=== PATIENT | female | born 1935 | race Caucasian/White ===

== ENCOUNTER 2019-02-04 01:46 | Inpatient (IN) | payer MEDICARE, OTHER ==
[~2019-02-04] VITALS: Ht 177.8 cm; Wt 90.3 kg
[2019-02-04] VITALS (17 sets, daily range): BP systolic 123–161; BP diastolic 64–97; Ht 177.8 cm; Wt 90.3 kg
[2019-02-04] MEDS ORDERED: WARF4TAB46 PO (02:01)
[2019-02-04] MEDS ORDERED: TAMS0.4C25 PO (02:01)
[2019-02-04] MEDS ORDERED: NS(*) 0.9% 1000 ML BAG 1,000 ML IV ONE (02:10)
[2019-02-04 02:17] LABS: PLATELET COUNT, AUTOMATED 321 K/uL (150-450)
--- NOTE | 2019-02-04 02:24 | EKG ---
FACILITY: [facility] PATIENT NAME: DENISE BOWSER : [id number] MR: [id number] V: [id number] EXAM DATE: ORDERING PHYSICIAN: RIMA PAEZ TECHNOLOGIST: LUCIANO Test Reason : EPIGASTRIC PAIN Blood Pressure : / mmHG Vent. Rate : 097 BPM Atrial Rate : 097 BPM P-R Int : 150 ms QRS Dur : 138 ms QT Int : 404 ms P-R-T Axes : 021 -77 026 degrees QTc Int : 513 ms Normal sinus rhythm Right bundle branch block Left anterior fascicular block Bifascicular block Abnormal ECG No previous ECGs available Confirmed by ALVIN HODGE ([id number]) on 02/04/2019 6:50:37 AM Referred By: Confirmed By:ALVIN HODGE
--- NOTE | 2019-02-04 03:21 | ER Report ---
History and Physical Time Seen By MD: 01:45 Hx. of Stated Complaint: HAS RT SIDE ABDOMINAL PAIN. HASN'T HAD A BOWEL MOVEMENT SINCE YESTERDAY. VOMITED ONCE ENROUTE TO HOSP. HPI/ROS CHIEF COMPLAINT: abdominal pain HISTORY OF PRESENT ILLNESS: pt has 1 d of abdominal pain; developed at noon while sitting, notes r sided and epigastric. Constant, gradually improving. Was staying at cabin near [place] and drove here due to pain. Has not had similar symptoms. Vomited x 2. No nausea now. No fever/chills. Last BM yesterday was nl. Pt is passing gas. Hx of r nephrectomy after reported renal abscess 10 yrs ago. Hx DVT and on coumadin. HX br xc with r masectomy in 1998; annual checks show no recurrence. REVIEW OF SYSTEMS: Constitutional: No fever, no chills. Eyes: No discharge. ENT: No sore throat. Cardiovascular: No chest pain, no palpitations. Respiratory: No cough, no shortness of breath. Gastrointestinal: above Genitourinary: No hematuria. Musculoskeletal: No back pain. Skin: No rashes. Neurological: No headache. Remainder of the 14 system rev: Yes Allergies: Coded Allergies: Sulfa (Sulfonamide Antibiotics) (Verified Allergy, Intermediate, 02/04/19) Home Meds Reported Medications Benazepril Hcl (BENAZEPRIL HCL) 20 Mg Tab, 1 TAB PO QDAY 02/04/19 Warfarin Sodium (WARFARIN SODIUM) 1 Mg Tablet, 0.5 TAB PO DIRECTED 4 mg on MON, WED and FRI 4.5 mg on TUES, THURS, SAT and SUN 02/04/19 Tamsulosin Hcl (FLOMAX) 0.4 Mg Cap.er.24h, 1 CAP PO QHS, CAP 02/04/19 Warfarin Sodium (COUMADIN) 4 Mg Tablet, 1 TAB PO DIRECTED 4 mg on MON, WED and FRI 4.5 mg on TUES, THURS, SAT and SUN 02/04/19 Reviewed Nurses Notes: Yes Hx Substance Use Disorder: No Hx Alcohol Use: No Constitutional Vital Sign - Last 24 Hours 02/04/19 02/04/19 02/04/19 01:52 03:16 04:01 Temp 98.2 Pulse 98 97 89 Resp 12 12 14 B/P (MAP) 129/102 135/85 (102) 145/94 (111) Pulse Ox 90 95 92 O2 Delivery Room Air Room Air Room Air Physical Exam General Appearance: The patient is alert, has no immediate need for airway protection and no signs of toxicity. Eyes: Pupils equal and round no pallor or injection. ENT, Mouth: Mucous membranes are moist. Respiratory: There are no retractions, lungs are clear to auscultation. Cardiovascular: Regular rate and rhythm. no m/r/g Gastrointestinal: normal bowel sounds, mild epigastric ttp. No rebound/guarding/peritoneal. No other focal ttp. Neurological: alert, no gross deficits Skin: Warm and dry, no rashes. Musculoskeletal: Extremities are nontender, nonswollen and have full range of motion, with exception of left knee ttp c/w pt's chronic c/o knee pain DIFFERENTIAL DIAGNOSIS: After history and physical exam differential diagnosis was considered for abdominal pain including but not limited to appendicitis, cholecystitis, gastritis and urinary tract infection.chest pain including but not limited to myocardial ischemia, pericarditis pulmonary embolus, chest wall pain, pleural inflammation and pulmonary infectious causes. Medical Decision Making Data Points Result Diagram: 02/04/19 0200 02/04/19 0200 Laboratory Hematology Test 02/04/19 02:00 White Blood Count 20.9 k/uL (4.5-11.0) H Red Blood Count 4.67 M/uL (4.17-5.56) Hemoglobin 14.7 g/dL (12.0-16.0) Hematocrit 43.5 % (34.0-47.0) Mean Corpuscular Volume 93.3 fL (80.0-96.0) Mean Corpuscular Hemoglobin 31.6 pg (26.0-33.0) Mean Corpuscular Hemoglobin Concent 33.8 g/dL (32.0-36.0) Red Cell Distribution Width 14.6 % (11.5-14.5) H Platelet Count 321 K/uL (150-450) Mean Platelet Volume 9.2 fL (7.2-11.1) Neutrophils (%) (Auto) 92.2 % (39.4-72.5) H Lymphocytes (%) (Auto) 4.3 % (17.6-49.6) L Monocytes (%) (Auto) 2.9 % (4.1-12.4) L Eosinophils (%) (Auto) 0.0 % (0.4-6.7) L Basophils (%) (Auto) 0.6 % (0.3-1.4) Nucleated RBC Relative Count (auto) 0.0 /100WBC Neutrophils # (Auto) 19.2 K/uL (2.0-7.4) H Lymphocytes # (Auto) 0.9 K/uL (1.3-3.6) L Monocytes # (Auto) 0.6 K/uL (0.3-1.0) Eosinophils # (Auto) 0.0 K/uL (0.0-0.5) Basophils # (Auto) 0.1 K/uL (0.0-0.1) Nucleated RBC Absolute Count (auto) 0.01 K/uL Peripheral Blood Smear Yes Y/N Chemistry Test 02/04/19 02:00 Sodium Level 136 mmol/L (137-145) Potassium Level 4.8 mmol/L (3.5-5.0) Chloride Level 100 mmol/L (98-107) Carbon Dioxide Level 23 mmol/L (22-31) Blood Urea Nitrogen 28 mg/dl (7-18) Creatinine 1.50 mg/dl (0.52-1.04) Glomerular Filtration Rate Calc 33.2 Random Glucose 190 mg/dl (75-110) Hemoglobin A1c 5.7 % (4.6-6.0) Calcium Level 10.7 mg/dl (8.4-10.2) Total Bilirubin 0.7 mg/dl (0.2-1.3) Aspartate Amino Transf (AST/SGOT) 49 U/L (0-35) Alanine Aminotransferase (ALT/SGPT) 42 U/L (0-56) Alkaline Phosphatase 84 U/L (0-126) Troponin I < 0.012 ng/ml Total Protein 8.5 g/dl (6.3-8.2) Albumin 4.3 g/dl (3.5-5.0) Lipase 126 U/L (23-300) Coagulation Test 02/04/19 02:00 Activated Partial Thromboplast Time 37 seconds (23-35) Urinalysis Test 02/04/19 02:20 Urine Color Yellow Urine Clarity Slightly-cloudy Urine pH 5.0 pH (4.8-9.5) Urine Specific [place] 1.021 Urine Protein Negative mg/dL (NEGATIVE) Urine Glucose (UA) Negative mg/dL (NEGATIVE) Urine Ketones Trace mg/dL (NEGATIVE) Urine Blood Negative (NEGATIVE) Urine Nitrite Negative (NEGATIVE) Urine Bilirubin Negative (NEGATIVE) Urine Urobilinogen Negative mg/dL (0.2-1.9) Urine Leukocyte Esterase Small (NEGATIVE) Urine RBC 2 /HPF (0-2/HPF) Urine WBC 100 /HPF (0-5/HPF) Urine WBC Clumps Mod /HPF Urine Squamous Epithelial Cells None /LPF (NONE-FEW) Urine Bacteria Many /HPF (NONE-FEW) Urine Hyaline Casts Few /LPF (NONE-FEW) Urine Mucus None /HPF (NONE-FEW) EKG/Imaging EKG Interpretation 12 lead EKG: Rhythm: normal sinus rhythm [place]: left QRS: wide; rbb, lafb ST segments: no st elevations/depressions Sinus rhythm with bifasicular block Monitor Interpretation: Normal Sinus Rhythm ED Course/Re-evaluation ED Course 83-year-old female presents with epigastric and right upper quadrant pain since noon. Patient has not had similar symptoms previously. Medical history signifi cant for DVT, on Coumadin (INR 2.5), breast cancer, status post right-sided mastectomy, with annual evaluations and has been in remission for 18 years, htn, single kidney secondary to nephrectomy due to what sounds like renal abscess/sepsis. Findings c/w acute cholecystitis without findings concerning for choledocholithiasis. Pt hd stable in ED. Will initiate zosyn; c/s Dr. Staley who agrees to admission with hospitalist consult; consulted Dr. Pichardo for hospitalist evaluation. Pt understands possibility of need for lap choly due to open nephrectomy in past. Pt understands need to f/u for comparison of imaging given lymph nodes noted on CT. Decision to Disposition Date: Feb 04, 2019 Decision to Disposition Time: 04:13 Depart Departure Latest Vital Signs Vital Signs Date Time Temp Pulse Resp B/P (MAP) Pulse Ox O2 Delivery O2 Flow Rate FiO2 02/04/19 04:01 89 14 145/94 (111) 92 Room Air 02/04/19 01:52 98.2 Impression: Primary Impression: Cholecystitis Additional Impressions: Ileus Lymphadenopathy Condition: Improved Disposition: Admitted from ER Problem Qualifiers RIMA PAEZ MD Feb 04, 2019 03:21
--- NOTE | 2019-02-04 03:40 | RADIOLOGY IMAGING REPORT ---
FACILITY: [facility] [place] PATIENT NAME: Thea Llamas : 1935 MR: [id number] V: [id number] EXAM DATE: ORDERING PHYSICIAN: RIMA PAEZ TECHNOLOGIST: Location: [facility] [place] Patient: Thea Llamas : 1935 Visit/Account:[id number] Date of Sevice: 02/04/2019 CT ABDOMEN PELVIS W/O CON HISTORY: Epigastric pain, tenderness, and abdominal distention. COMPARISON: None. TECHNIQUE: Axial images were obtained from the lung bases through the symphysis pubis without intrave nous contrast. Sagittal and coronal reformats were performed. One of the following dose optimization techniques was utilized in the performance of this exam: Autom ated exposure control; adjustment of the mA and/or kV according to the patient's size; or use of an i terative reconstruction technique. Specific details can be referenced in the facility's radiology CT exam operational policy. CONTRAST: None. FINDINGS: LOWER CHEST: There is mild atelectasis and/or scarring. There are right cardiophrenic angle nodes jasmyne t are enlarged for location, the largest measuring 4 mm short axis diameter. There are also prominent lymph nodes adjacent to the superior vena cava (images 13 through 15 series 2, and one adjacent to t he esophagus (image 14), although they are not enlarged. LIVER: Normal. GALLBLADDER/BILIARY: There is diffuse edema/thickening of the gallbladder wall, and there is trace pe richolecystic stranding. There is an oval structure that suspect is a partially calcified large stone within the gallbladder. No intrahepatic or extrahepatic ductal dilation. PANCREAS: Moderate to severe atrophy. SPLEEN: Normal. ADRENALS: Bilateral enlargement, likely due to adrenal hyperplasia. KIDNEYS/URETERS/BLADDER: Normal. The bladder is decompressed. GI/MESENTERY/PERITONEAL CAVITY: There are dilated fluid-filled small bowel loops. Bowel tapers distal ly rather than an abrupt transition, favoring ileus over small bowel obstruction. No bowel wall thick ening. The small bowel tracks more inferiorly than typically seen prior to crossing midline. In addit ion, there is a paucity of small bowel loops in the left upper quadrant. No volvulus. The appendix is closely opposed to the terminal ileum, but appears normal. There is trace ascites in the right parac olic gutter and within the pelvis. No free air. VESSELS: There is moderate to severe atherosclerotic disease. No aneurysm. NODES: Normal. PELVIS: There are numerous phleboliths. Uterus is absent. Ovaries are not identified and may be absen t. BONES/VERTEBRA/SOFT TISSUES: There is a leftward curvature of the lumbar spine with a rotatory compon ent. There is severe multilevel degenerative disc disease. There are endplate sclerosis and vacuum cl efts at numerous levels. There is 2 mm retrolisthesis of T12 compared to L1. There is moderate spinal canal stenosis at L4-5, secondary to degenerative changes. There is mild spinal canal stenosis at L2 -3 and L3-4. There is sclerosis along the sacroiliac joints. There is mild degenerative change of the hips. There is degenerative change of the symphysis pubis. There are varices in the anterior low pelvic wall. IMPRESSION: 1. Findings are suspicious for cholecystitis. 2. Dilated small bowel loops with a tapering transition, which favors ileus over small bowel obstruct ion. Follow-up as clinically indicated. 3. 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 No volvulus. 4. Enlarged right cardiophrenic angle lymph nodes for location. Reportedly, patient has a history of cancer (breast). If patient has prior studies elsewhere, suggest comparison made to assess for long-t erm stability. These findings were discussed by phone with RIMA PAEZ on 02/04/2019 3:20 AM. Report Dictated By: Loree Shannon at 02/04/2019 3:03 AM Report E-Signed By: Loree Shannon at 02/04/2019 3:31 AM WSN:[id number]
[2019-02-04 03:53] LABS: INR 2.51
[2019-02-04] MEDS ORDERED: PIPERACILLIN/TAZO*3.375GM VIAL 3.375 GM in NS(*) 0.9% 100 ML MINI-BAG 100 ML IVPB ONE (04:00)
[2019-02-04] MEDS ORDERED: MORPHINE 2 MG/ML SYR IVP ONE (04:10)
[2019-02-04] MEDS ORDERED: ONDANSETRON 4 MG/2 ML VIAL ONE (04:16)
[2019-02-04] MEDS ORDERED: KCL/D1/2NS 20 MEQ 1000 ML 1,000 ML IV PRN (05:39)
[2019-02-04] MEDS ORDERED: ACETAMINOPHEN 325 MG TAB PO PRN ×2 (05:40→06:10)
[2019-02-04] MEDS ORDERED: NALOXONE HCL 0.4 MG/ML VIAL IVP PRN (05:40)
--- NOTE | 2019-02-04 05:48 | Gen Surgery History & Physical ---
History of Present Illness Chief Complaint RUQ pain History of Present Illness 83 yo female with 16 hour hx RUQ/epigastric pain, associated with NV. Pain is severe, constant and non-radiating. No prior similar s/s. Pt is on Coumadin for hx DVT at the time of her mastectomy. No FCS or dark urine. History Unable To Obtain Past Medical: Home Meds Reported Medications Tamsulosin Hcl (FLOMAX) 0.4 Mg Cap.er.24h, 0.4 MG PO, CAP 02/04/19 Warfarin Sodium (COUMADIN) 4 Mg Tablet, 4 MG PO QDAY 02/04/19 Allergies: Coded Allergies: Sulfa (Sulfonamide Antibiotics) (Verified Allergy, Intermediate, 02/04/19) Review of Systems All Systems Reviewed/Normal: Yes, Except as Noted Gastrointestinal: Other (see HPI) Exam General Appearance: Alert, Awake, No Acute Distress, Afebrile Neuro: No Gross deficits Cardiovascular: Normal Rhythm & Peripheral Pulses Respiratory: No Respiratory Distress, Clear to Auscultation, Other (right mastectomy) GI: Other (soft, non-distended with +BS, +Ortiz's sign, well healed right flank incision) Musculoskeletal: No Weakness/Pain Integumentary: Skin Intact without Lesion / Mass Psych: Alert & Oriented X3, Appropriate Mood & Affect Medical Decision Making Data Points Result Diagram: 02/04/19 0200 02/04/19 020 EKG / Imaging Monitor Interpretation: Normal Sinus Rhythm Pre-Admit Course Medical Record Review: Yes Assessment and Plan Problems: (1) Cholecystitis Status: Acute Assessment & Plan: 83 yo female with acute cholecystitis in the setting of prior right nephrectomy for benign disease. Will need Coumadin reversed and cholecystectomy, likely an open approach. Will ask Int Med to eval given her co-morbidities. Time Spent: > 30 min Venous Thromboembolism VTE Risk Physician Assess for VTE Risk: Yes Patient's VTE Risk: Low VTE Diagnostic Test 2 Days Prior to Admit: No Antithrombotics Is Pt On Any Antithrombotics?: Yes DENICE JOHNSON MD Feb 04, 2019 05:48
[2019-02-04] MEDS ORDERED: MORPHINE 2 MG/ML SYR IVP PRN (06:10)
[2019-02-04] MEDS ORDERED: ONDANSETRON 4 MG/2 ML VIAL IVP PRN (06:10)
--- NOTE | 2019-02-04 06:12 | RADIOLOGY IMAGING REPORT ---
[place] [facility] [place] Thea Llamas : 1935 MR: [id number] V: [id number] EXAM DATE: ORDERING PHYSICIAN: DENICE JOHNSON TECHNOLOGIST: Location: [facility] Patient: Thea Llamas : 1935 Visit/Account:[id number] Date of Sevice: 02/04/2019 CHEST SINGLE AP 02/04/2019 05:39 hours. HISTORY: Assess for CHF. COMPARISON: None. TECHNIQUE: Portable AP view of the chest. FINDINGS: TUBES/LINES/HARDWARE: There are surgical clips at the right axilla and overlying the right side of th e heart. PULMONARY/PLEURA: There is linear opacity in the left lower lung field. Right lung is clear. No inter stitial prominence. There is no pneumothorax or pleural effusion. CARDIOMEDIASTINAL: Cardiac and mediastinal silhouettes are within normal limits. BONES/SOFT TISSUES: No acute osseous abnormality. The visible abdomen is normal. IMPRESSION: 1. Minimal scarring or atelectasis at the left lower lung field but no evidence for CHF. Report Dictated By: Loree Shannon at 02/04/2019 6:02 AM Report E-Signed By: Loree Shannon at 02/04/2019 6:04 AM WSN:[id number]
--- NOTE | 2019-02-04 06:14 | Hospitalist Progress Note ---
Subjective Progress Notes Subjective 83 yr old lady with acute cholecystitis/cholelithiasis with abrupt onset yesterday afternoon with abdominal pain, nausea and recurrent emesis. Symptoms did not resolve so she presented to ER early this morning. No history of gall bladder disease, pancreatitis, liver disease or peptic ulcer disease. Workup in ER revealed large gallstone, inflammation surrounding gall bladder with some fluid collection. Elevated WBC's. Admitted to surgical service. Patient Complains of: Gastrointestinal: Nausea, Vomiting, Other (constipation. Right upper abdominal pain. Poor appetite. ) Physical Exam Vital Signs Date Time Temp Pulse Resp B/P (MAP) Pulse Ox O2 Delivery O2 Flow Rate FiO2 02/04/19 04:44 97 12 131/78 (95) 93 Room Air 02/04/19 01:52 98.2 Intake and Output 02/04/19 07:03 Intake Total 800 ml Output Total 100 ml Balance 700 ml Intake IV Total 800 ml Output Urine Total 100 ml General Appearance: Alert, Awake, No Acute Distress, Afebrile Cardiovascular: Regular Rate and Rhythm, Other (Very soft S1S2. No murmurs, gallops or rubs.) Respiratory: Clear to Auscultation Chest: No Masses, No Tenderness, Other (S/P right mastectomy.) GI: Other (Moderately tender right upper quadrant. No distension. BS are hypoactive. No organomegaly or masses. ) : No CVA Tenderness Lymph: No Adenopathy Extremities: Soft and Non Tender, Warm, Pulses, Perfused, Other (Right calf is slightly larger that left due to old thrombophlebitis. No acute changes. ) Psych: Alert & Oriented X3, Appropriate Mood & Affect Result Diagram: 02/04/1919902/04/19199 Item Value Date Time Total Bilirubin 0.7 mg/dl 02/04/19199 Aspartate Amino Transf (AST/SGOT) 49 U/L H 02/04/19199 Random Glucose 190 mg/dl H 02/04/19199 Calcium Level 10.7 mg/dl H 02/04/19199 Alanine Aminotransferase (ALT/SGPT) 42 U/L 02/04/19199 Alkaline Phosphatase 84 U/L 02/04/19199 Troponin I < 0.012 ng/ml 02/04/19199 Total Protein 8.5 g/dl H 02/04/19199 Albumin 4.3 g/dl 02/04/19199 Lipase 126 U/L 02/04/19199 Urine Color Yellow 02/04/19219 Urine Clarity Slightly-cloudy 02/04/19219 Urine pH 5.0 pH 02/04/19219 Urine Specific [place] 1.021 02/04/19219 Urine Protein Negative mg/dL 02/04/19219 Urine Glucose (UA) Negative mg/dL 02/04/19219 Urine Ketones Trace mg/dL 02/04/19219 Urine Nitrite Negative 02/04/19219 Urine Blood Negative 02/04/19219 Urine Urobilinogen Negative mg/dL 02/04/19219 Urine Bilirubin Negative 02/04/19219 Urine Leukocyte Esterase Small H 02/04/19219 Urine RBC 2 /HPF 02/04/19219 Urine WBC 100 /HPF 02/04/19219 Urine WBC Clumps Mod /HPF 02/04/19219 Urine Squamous Epithelial Cells None /LPF 02/04/19219 Urine Bacteria Many /HPF H 02/04/19219 Urine Hyaline Casts Few /LPF 02/04/19219 Urine Mucus None /HPF 02/04/19219 Prothrombin Time 27.5 seconds H 02/04/19199 Prothromb Time International Ratio 2.51 02/04/19199 Activated Partial Thromboplast Time 37 seconds H 02/04/19199 Monitor Interpretation: Normal Sinus Rhythm Assessment and Plan Problems: (1) Cholecystitis, acute with cholelithiasis Status: Acute Assessment & Plan: See surgical report and plans which for now include IV antibiotics with piperacillin/tazo and IV fluids, pain control. Follow CBC and chem panel. Will certainly need cholecystectomy sooner than later. (2) Ileus Status: Acute Assessment & Plan: Secondary to #1. (3) UTI (urinary tract infection) Status: Chronic Assessment & Plan: Probably has acute UTI based on UA. Culture done prior to antibiotics. She does have recurrent problems with UTI's and does self cath at home as needed--usually 3-4 times a day--due to poor bladder emptying. Will continue self cath as required. (4) Adrenal hyperplasia Status: Chronic Assessment & Plan: Will need to be evaluated as outpt. Could explain the hy perglycemia. (5) Hyperglycemia Status: Acute Assessment & Plan: No history of diagnosed diabetes. Will check WBG levels over the next several days and decide onl treatment. Check Hgb A1C. (6) Lymphadenopathy Status: Chronic Assessment & Plan: Most likely chronic although cannot exclude metastatic breast cancer. She is followed on a regular basis for her breast cancer and has had no recurrent noted. Will follow-up as outpatient. (7) Elevated serum creatinine Status: Chronic Assessment & Plan: Probably chronic due to previous left nephrectomy for damage done from what was probably sepsis in 1998. May be component of dehydration as well. Will run NS at 125 cc/hr and follow serum creat. (8) DVT of lower extremity (deep venous thrombosis) Status: Chronic Assessment & Plan: DVT x 1 post sepsis in 1998. No recurrence with chronic anticoagulation with warfarin. Will need to reverse INR as soon as surgeons decide upon cholecystectomy with vit. K and/or FFP. (9) History of nephrectomy, right Status: Resolved Assessment & Plan: Renal damage was originally done in 1998 with episode of sepsis due to infection in left ankle and foot. Ended up with chronic UTI's and probable abscess in right kidney requiring nephrectomy in 2006. (10) ASVD (arteriosclerotic vascular disease) Status: Chronic Assessment & Plan: See CT report. (11) Breast cancer, right Status: Resolved Assessment & Plan: Inactive problem at this time with regular follow-up at home. The adenopathy reported on CT is a bit concerning but will follow-up as outpt. Time Spent on Plan of Care: > 30 min Exam Sepsis Risk: No Definite Risk Problem Qualifiers (1) UTI (urinary tract infection): Urinary tract infection type: acute cystitis MILKA HODGE MD FACP Feb 04, 2019 06:13
[2019-02-04] MEDS ORDERED: NS(*) 0.9% 1000 ML BAG 1,000 ML IV PRN ×2 (06:25→16:24)
[2019-02-04] MEDS ORDERED: PIPERACILLIN/TAZO*3.375GM VIAL 3.375 GM in NS(*) 0.9% 100 ML MINI-BAG 100 ML IVPB SCH (10:30)
[2019-02-04 11:39] LABS: INR 2.34
[2019-02-04] MEDS ORDERED: WARF1TAB15 PO (12:59)
[2019-02-04] MEDS ORDERED: BENA20TA64 PO (12:59)
[2019-02-04] MEDS ORDERED: NS(*) 0.9% 500 ML BAG 500 ML IV PRN (15:40)
[2019-02-04] MEDS: PIPERACILLIN/TAZO*3.375GM VIAL 3.375 GM in NS(*) 0.9% 100 ML MINI-BAG 100 ML IVPB SCH (18:27)
[2019-02-04] MEDS ORDERED: diphenhydrAMINE 25 MG CAP PO ONE (22:00)
[2019-02-04] MEDS ORDERED: LOPERAMIDE HCL 2 MG CAP PO ONE (22:00)
[2019-02-05] VITALS (16 sets, daily range): BP systolic 132–182; BP diastolic 4–103
[2019-02-05] MEDS: PIPERACILLIN/TAZO*3.375GM VIAL 3.375 GM in NS(*) 0.9% 100 ML MINI-BAG 100 ML IVPB SCH ×6 (00:22→23:51)
[2019-02-05 06:10] LABS: PLATELET COUNT, AUTOMATED 215 K/uL (150-450)
[2019-02-05 06:17] LABS: INR 1.59
--- NOTE | 2019-02-05 06:55 | RADIOLOGY IMAGING REPORT ---
FACILITY: PATIENT NAME: Thea Llamas : 1935 MR: [id number] V: [id number] EXAM DATE: ORDERING PHYSICIAN: KHUSHI FORTUNE TECHNOLOGIST: Location: [facility] Patient: Thea Llamas : 1935 Visit/Account:[id number] Date of Sevice: 02/05/2019 CHEST SINGLE AP Additional pertinent History: Preop COMPARISON STUDIES: none FINDINGS: Support lines and catheters: Oxygen tubing Lungs and Pleura: Mild coarse interstitial lung changes well aerated lung angel with no infiltrates or consolidations. No effusions. No parenchymal mass lesions. Heart and vasculature: Negative. Tg and Mediastinum: Negative. Bones and Chest wall: Postsurgical changes in the right axilla Upper Abdomen: Negative. IMPRESSION: 1. Negative chest. No significant interval change in the appearance when compared to the previous dilma dy. Report Dictated By: Parrish Francois MD at 02/05/2019 6:45 AM Report E-Signed By: Parrish Francois MD at 02/05/2019 6:48 AM WSN:[id number]
--- NOTE | 2019-02-05 07:13 | General Surgery Progress Note ---
Subjective Progress Notes Subjective feeling fine. mult diarrhea bms. pain much improved. Physical Exam Vital Signs Date Time Temp Pulse Resp B/P (MAP) Pulse Ox O2 Delivery O2 Flow Rate FiO2 02/05/19 06:50 98.3 73 133/78 (96) 95 Nasal Cannula 1.0 02/05/19 00:20 18 Intake and Output 02/05/19 07:03 Intake Total 1391 ml Output Total 1000 ml Balance 391 ml Intake Oral 300 ml Blood Product 1091 ml Output Urine Total 1000 ml # Voids 1 # Bowel Movements 8 General Appearance: No Acute Distress GI: Other (abd soft) Result Diagram: 02/05/19 0550 02/05/19 0550 Monitor Interpretation: Normal Sinus Rhythm Assessment and Plan Problems: (1) Cholecystitis Status: Acute Assessment & Plan: 83 yo female with acute cholecystitis in the setting of prior right nephrectomy for benign disease. Will need Coumadin reversed and cholecystectomy, likely an open approach. Will ask Int Med to eval given her co-morbidities. 02/05/19: doing fine. npo. cont iv abx. lap khushbu today. Exam Sepsis Risk: No Definite Risk KHUSHI FORTUNE Feb 05, 2019 07:12
[2019-02-05] MEDS ORDERED: FAMOTIDINE(*) 20MG/50ML PREMIX 50 ML IVPB ONE (08:00)
[2019-02-05] MEDS ORDERED: NORMOSOL R SOLN(*) 1000 ML BAG 1,000 ML IV PRN (09:00)
--- NOTE | 2019-02-05 09:45 | Antimicrobial Stewardship ---
Antimicrobial Time Out Antimicrobial Stewardship MD Service: Other (SURGERY) Indications: Other (CHOLECYSTITIS) Antimicrobial Used ZOSYN Start Date: Feb 04, 2019 Culture Results: N/A Eligible for PO Conversion Eligable for PO Conversion: No (NPO - LAP ROSAURA TODAY) Reviewed with Provider Reviewed w/ Provider on Rounds: No Comments Comments PATIENT WITH CHOLECYSTITIS AND STARTED ON ZOSYN PRIOR TO LAP CHOLECYSTECTOMY. FRANCE PORTER Feb 05, 2019 09:45
--- NOTE | 2019-02-05 09:57 | NUR ---
DARLINE from Diamante CLARK and Jazlyn CLARK from [facility]
[2019-02-05] MEDS ORDERED: PROPOFOL EMUL(*) 10MG/ML 20 ML 20 ML ONE (10:17)
[2019-02-05] MEDS ORDERED: DEXAMETHASONE SOD PHOS 10MG/ML ONE (10:19)
[2019-02-05] MEDS ORDERED: ROCURONIUM BR 10 MG/ML 5 ML SY 5 ML ONE (10:19)
[2019-02-05] MEDS ORDERED: ONDANSETRON 4 MG/2 ML VIAL ONE (10:19)
[2019-02-05] MEDS ORDERED: BUPIVACAINE/EPI 0.5% 50ML VIAL INFIL ONE (10:44)
[2019-02-05] MEDS ORDERED: PHENYLEPHRINE 10 MG/1 ML VIAL ONE (10:57)
[2019-02-05] MEDS ORDERED: NS 0.9% 20 ML SDV 20 ML ONE (10:57)
--- NOTE | 2019-02-05 11:01 | Hospitalist Progress Note ---
Subjective Progress Notes Subjective She was admitted for cholecystitis. She is expected to get surgical repair today. She has no complaints, she had no acute events overnight. Patient Complains of: Cardiovascular: No: Chest Pain Respiratory: No: Shortness of Breath Physical Exam Vital Signs Date Time Temp Pulse Resp B/P (MAP) Pulse Ox O2 Delivery O2 Flow Rate FiO2 02/05/19 10:28 94 Nasal Cannula 1.0 02/05/19 09:55 96.9 75 16 160/84 (109) Intake and Output 02/05/19 01:03 Intake Total 2671 ml Output Total 900 ml Balance 1771 ml Intake Oral 780 ml IV Total 800 ml Blood Product 1091 ml Output Urine Total 900 ml # Voids 1 # Bowel Movements 8 General Appearance: Alert, Awake, No Acute Distress, Afebrile Neuro: No Gross deficits Cardiovascular: Regular Rate and Rhythm Respiratory: No Respiratory Distress, Clear to Auscultation Psych: Alert & Oriented X3, Appropriate Mood & Affect Result Diagram: 02/05/19 0550 02/05/19 0550 Monitor Interpretation: Normal Sinus Rhythm Assessment and Plan Problems: (1) Cholecystitis, acute with cholelithiasis Status: Acute Assessment & Plan: See surgical report and plans include IV antibiotics with piperacillin/tazo and IV fluids, pain control. Follow CBC and chem panel. Surgery planning cholecystectomy today. (2) Ileus Status: Acute Assessment & Plan: Secondary to #1. (3) UTI (urinary tract infection) Status: Chronic Assessment & Plan: Probably has acute UTI based on UA. Culture done prior to antibiotics. She does have recurrent problems with UTI's and does self cath at home as needed--usually 3-4 times a day--due to poor bladder emptying. Will continue self cath as required. (4) Adrenal hyperplasia Status: Chronic Assessment & Plan: Will need to be evaluated as outpt. Could explain the hyperglycemia. (5) Hyperglycemia Status: Acute Assessment & Plan: No history of diagnosed diabetes. Hgb A1C is 5.7. Fasting glucose this morning 94. Will continue to monitor. (6) Lymphadenopathy Status: Chronic Assessment & Plan: Most likely chronic although cannot exclude metastatic breast cancer. She is followed on a regular basis for her breast cancer and has had no recurrent noted. Will follow-up as outpatient. (7) Elevated serum creatinine Status: Chronic Assessment & Plan: Probably chronic due to previous left nephrectomy for damage done from what was probably sepsis in 1998. May be component of dehydration as well. Will run NS at 125 cc/hr and follow serum creat. (8) DVT of lower extremity (deep venous thrombosis) Status: Chronic Assessment & Plan: DVT x 1 post sepsis in 1998. No recurrence with chronic anticoagulation with warfarin. Reverse INR with 4u units of FFP. INR now 1.5. (9) History of nephrectomy, right Status: Resolved Assessment & Plan: Renal damage was originally done in 1998 with episode of sepsis due to infection in left ankle and foot. Ended up with chronic UTI's and probable abscess in right kidney requiring nephrectomy in 2006. (10) ASVD (arteriosclerotic vascular disease) Status: Chronic Assessment & Plan: See CT report. (11) Breast cancer, right Status: Resolved Assessment & Plan: Inactive problem at this time with regular follow-up at home. The adenopathy reported on CT is a bit concerning but will follow-up as outpt. Exam Sepsis Risk: No Definite Risk Problem Qualifiers (1) UTI (urinary tract infection): Urinary tract infection type: acute cystitis TERRI LEVINP Feb 05, 2019 11:01
[2019-02-05] MEDS ORDERED: SUGAMMADEX SOD 200 MG/2 ML SDV ONE (11:57)
[2019-02-05] MEDS ORDERED: fentaNYL CITR 100 MCG/2 ML AMP ONE (12:30)
[2019-02-05] MEDS ORDERED: traMADol 50 MG TAB PO PRN (14:10)
[2019-02-05] MEDS ORDERED: NS(*) 0.9% 1000 ML BAG 1,000 ML IV PRN (17:16)
--- NOTE | 2019-02-05 21:43 | OPERATIVE REPORT 1 ---
EVENT DATE: February 05, 2019 SURGEON: Adrian Luke MD ANESTHESIOLOGIST: Huan Tavera MD ANESTHESIA: General and local. EDI SPECIALIST: None. PREOPERATIVE DIAGNOSIS Acute cholecystitis. POSTOPERATIVE DIAGNOSES 1. Acute cholecystitis. 2. Chronic cholecystitis. PROCEDURE PERFORMED Laparoscopic cholecystectomy. INTRAVENOUS FLUIDS Crystalloid. ESTIMATED BLOOD LOSS Minimal. SPECIMENS Gallbladder. COMPLICATIONS None. INDICATIONS This is an 83-year-old female who presented to the hospital with abdominal pain. CT scan showed a possible ileus. This has since resolved. The CT scan also showed a large stone in the gallbladder and inflammation around the gallbladder. Risks and benefits of the procedure were explained, and consent was signed. DESCRIPTION OF PROCEDURE Patient was taken to the operating room and placed in the supine position. General anesthesia was administered per anesthesia team. Patient prepped and draped in normal sterile fashion. Local analgesia injected in the dermis above the umbilicus, and a 5 mm vertical incision was made. The umbilical stump was grasped and elevated. A Veress needle was inserted. A pneumoperitoneum was achieved. Veress needle was removed, and a 5 mm port was advanced. After injecting local analgesia under direct vision, a 12 mm subxiphoid port and two 5 mm right-sided ports were placed. I inspected the abdomen. There was no injury upon entry. There were some adhesions between the abdominal wall and the omentum, as well as the omentum to the gallbladder. These were taken down with LigaSure. The fundus of the gallbladder was grasped and retracted superiorly and laterally. Infundibulum was grasped and retracted. Electrocautery and LigaSure were used to free the cystic duct and the cystic artery of surrounding tissue. Both structures were seen going directly to the gallbladder. The cystic artery was divided with LigaSure. Hemostasis was assured. Three clips were placed on the cystic duct, and it was divided sharply between the distal two clips. Gallbladder was taken off the liver bed with electrocautery and LigaSure. It was removed with an Endo Catch bag through the subxiphoid port site. There was some oozing from the gallbladder due to the chronic cholecystitis, and this was controlled with electrocautery. Right upper quadrant was irrigated and suctioned. Irrigant returned clear. Hemostasis was assured. Fascial closure device with an 0 Vicryl stitch times two was used to close the fascia at the subxiphoid port site. Two right upper quadrant ports were removed under direct vision. Hemostasis was assured. Pneumoperitoneum was relieved. Final port was removed. All skin incisions were closed with 4-0 Monocryl subcuticular stitches. More local analgesia was injected. Appropriate dressings were applied. Patient tolerated the procedure well. There were no complications. [facility]
[2019-02-05] MEDS: LOPERAMIDE HCL 2 MG CAP PO PRN (23:51)
[2019-02-06] VITALS (7 sets, daily range): BP systolic 146–171; BP diastolic 69–98
[2019-02-06] MEDS: PIPERACILLIN/TAZO*3.375GM VIAL 3.375 GM in NS(*) 0.9% 100 ML MINI-BAG 100 ML IVPB SCH ×4 (05:47→23:40)
[2019-02-06 08:02] LABS: PLATELET COUNT, AUTOMATED 234 K/uL (150-450)
--- NOTE | 2019-02-06 09:09 | Hospitalist Progress Note ---
Subjective Progress Notes Subjective She is s/p cholecystectomy. She reports much improvement in pain and symptoms. She has been tolerating clear liquid diet without difficulty. Patient Complains of: Cardiovascular: No: Chest Pain Respiratory: No: Shortness of Breath Physical Exam Vital Signs Date Time Temp Pulse Resp B/P (MAP) Pulse Ox O2 Delivery O2 Flow Rate FiO2 02/06/19 07:33 97.6 74 146/97 (113) 90 Nasal Cannula 2.0 02/06/19 02:57 16 Intake and Output 02/06/19 01:03 Intake Total 3150 ml Output Total 1400 ml Balance 1750 ml IV Total 3150 ml Output Urine Total 1400 ml # Bowel Movements 3 General Appearance: Alert, Awake, No Acute Distress, Afebrile Neuro: No Gross deficits Cardiovascular: Regular Rate and Rhythm Respiratory: No Respiratory Distress, Clear to Auscultation Psych: Alert & Oriented X3, Appropriate Mood & Affect Result Diagram: 02/06/19 0752 02/06/19 0752 Monitor Interpretation: Normal Sinus Rhythm Assessment and Plan Problems: (1) Cholecystitis, acute with cholelithiasis Status: Acute Assessment & Plan: See surgical report and plans include IV antibiotics with piperacillin/tazo and IV fluids, pain control. Follow CBC and chem panel. Cholecystectomy performed 02/05. (2) Ileus Status: Acute Assessment & Plan: Secondary to #1. (3) UTI (urinary tract infection) Status: Chronic Assessment & Plan: Probably has acute UTI based on UA. Culture done prior to antibiotics. She does have recurrent problems with UTI's and does self cath at home as needed--usually 3-4 times a day--due to poor bladder emptying. Will continue self cath as required. (4) Adrenal hyperplasia Status: Chronic Assessment & Plan: Will need to be evaluated as outpt. Could explain the hyperglycemia. (5) Hyperglycemia Status: Acute Assessment & Plan: No history of diagnosed diabetes. Hgb A1C is 5.7. Fasting glucose this morning 94. Will continue to monitor. (6) Lymphadenopathy Status: Chronic Assessment & Plan: Most likely chronic although cannot exclude metastatic breast cancer. She is followed on a regular basis for her breast cancer and has had no recurrent noted. Will follow-up as outpatient. (7) Elevated serum creatinine Status: Chronic Assessment & Plan: Probably chronic due to previous left nephrectomy for damage done from what was probably sepsis in 1998. May be component of dehydration as well. Will run NS at 125 cc/hr and follow serum creat. (8) DVT of lower extremity (deep venous thrombosis) Status: Chronic Assessment & Plan: DVT x 1 post sepsis in 1998. No recurrence with chronic anticoagulation with warfarin. Reverse INR with 4u units of FFP. INR now 1.5. Will await approval to restart from general surgery. (9) History of nephrectomy, right Status: Resolved Assessment & Plan: Renal damage was originally done in 1998 with episode of sepsis due to infection in left ankle and foot. Ended up with chronic UTI's and probable abscess in right kidney requiring nephrectomy in 2006. (10) ASVD (arteriosclerotic vascular disease) Status: Chronic Assessment & Plan: See CT report. (11) Breast cancer, right Status: Resolved Assessment & Plan: Inactive problem at this time with regular follow-up at home. The adenopathy reported on CT is a bit concerning but will follow-up as outpt. Exam Sepsis Risk: No Definite Risk Problem Qualifiers (1) UTI (urinary tract infection): Urinary tract infection type: acute cystitis TERRI LEVINP Feb 06, 2019 09:08
[2019-02-06] MEDS: LOPERAMIDE HCL 2 MG CAP PO PRN ×5 (09:22→23:04)
[2019-02-06] MEDS: BENAZEPRIL HCL 20 MG TAB PO SCH (11:05)
[2019-02-06] MEDS: ENOXAPARIN 100 MG/ML SYR SC SCH ×2 (11:07→23:05)
--- NOTE | 2019-02-06 11:16 | Medical Nutrition Therapy ---
Nutrition Anthropometrics Height (Inches): 70.00 Height (Calculated Centimeters: 177.568409 Weight (Pounds): 199 Weight (Calculated Kilograms): 90.350 BMI: 28.6 Alhaji Nutrition Score: Adequate Alhaji Nutrition Risk Score: 20 Dietary Referral Nutrition Risk Factors: Nutrition Risk Comment: Physical Findings Physical Appearance: Overweight BMI 25-29 Skin Appearance Skin Appearance: Edema Edema Location Modifier: Both Edema Location: Lower Extremity Type of Edema: Degree of Edema: 1+ Gastrointestinal Symptoms GI Symtoms: Change in Bowel Pattern Tube Present: Bowel Sounds: Recent Bowel Pattern: Stool Characteristics: Nutrition/Food History Good Nutritional Diagnosis Nutritional Risk Acuity 3: Fair Appetite, OR & > 80 yrs Past Medical History: IBS-D, HTN, Nephrectomy Nutritional Acuity: 3-Mild Nutrition Diagnosis: Altered GI Function Nutrition Etiology: Physiological Causes Nutrition Problem/Etiology/Sym: recent cholecystectomy, ileus, IBS-D Energy Requirement: 1826 ([place] Jeor) Protein Requirement: 69 (.8-1g/kg (Nephrectomy)) Fluid Requirement: 1826 (1mL/kcal) Nutrition Intervention: Teaching Drug: Warfarin Drug/Nutrition Recommendations: No High Vitamin K Foods Do Not Serve Any of the Follow: Broccoli, Brussel Sprouts, Spinach, [place] Lettuce, Cranberry Juice Nutritional Education Nutrition Education Topic: Other (Low Fat, FODMAPS diet for IBS) Learning Readiness: Interested Teaching Methods: Discussion, Handout Response to Teaching: Verbalize understanding Teaching Recipient: Patient Nutrition Monitoring & Eval Nutrition Goals: Eat 75-100% Meal Nutrition Monitoring: questions on low fat diet or FODMAPS diet RD Patient Assessment Time: [address] Assessment Type: RD Re-Assessment Patient Nutrition Acuity: 3-Mild Follow Up Date: Feb 11, 2019 Nutritional Comment: 02/06/19: Pt admit for cholecystitis, currently s/p cholecystectomy. Pertinent medical history includes nephrectomy, HTN, IBS-D. Pt follows low fat diet at home. Provided hand out on low fat diet. Pt also has IBS-D and wondered if there was a diet for IBS. Provided pt with FODMAP handout for pts, explained premise of diet and foods to avoid, recommended foods, and trying low FODMAP diet for 4-6 weeks and then slow reintroduction of 1-2 high FODMAP foods per week after. Discussed tracking food intake and then going back to compare food intake with high FODMAP food list and making meal adjustments.Encouraged pt to call or email with questions.MARI SIMON Feb 06, 2019 11:16
--- NOTE | 2019-02-06 15:01 | General Surgery Progress Note ---
Subjective Progress Notes Subjective doing well. still having diarrhea. Physical Exam Vital Signs Date Time Temp Pulse Resp B/P (MAP) Pulse Ox O2 Delivery O2 Flow Rate FiO2 02/06/19 11:03 98.3 66 14 149/70 (96) 95 Nasal Cannula 2.0 Intake and Output 02/06/19 07:03 Intake Total 3050 ml Output Total 1650 ml Balance 1400 ml IV Total 3050 ml Output Urine Total 1650 ml # Bowel Movements 3 General Appearance: No Acute Distress Cardiovascular: Other (reg rate) GI: Other (abd soft) Result Diagram: 02/06/19 0752 02/06/19 075 Monitor Interpretation: Normal Sinus Rhythm Assessment and Plan Problems: (1) Cholecystitis Status: Acute Assessment & Plan: 83 yo female with acute cholecystitis in the setting of prior right nephrectomy for benign disease. Will need Coumadin reversed and cholecystectomy, likely an open approach. Will ask Int Med to eval given her co-morbidities. 02/05/19: doing fine. npo. cont iv abx. lap khushbu today. 02/06/19: doing well. diet as douglas. d/c tomorrow. Exam Sepsis Risk: No Definite Risk KHUSHI FORTUNE Feb 06, 2019 15:01
[2019-02-06] MEDS ORDERED: WARFARIN SOD 4 MG TAB PO SCH (21:00)
[2019-02-06] MEDS ORDERED: WARFARIN SOD 1 MG TAB PO SCH ×2 (21:00)
[2019-02-06] MEDS: TAMSULOSIN HCL 0.4 MG CAP PO SCH (21:37)
[2019-02-07 03:20] VITALS: BP 162/86
[2019-02-07] MEDS: PIPERACILLIN/TAZO*3.375GM VIAL 3.375 GM in NS(*) 0.9% 100 ML MINI-BAG 100 ML IVPB SCH (05:46)
[2019-02-07 06:50] LABS: PLATELET COUNT, AUTOMATED 195 K/uL (150-450)
[2019-02-07 06:59] LABS: INR 1.72
[2019-02-07 07:02] VITALS: BP 142/69
[2019-02-07] MEDS ORDERED: TRAM-420 PO (07:02)
--- NOTE | 2019-02-07 07:43 | General Surgery Progress Note ---
Subjective Progress Notes Subjective no acute events Physical Exam Vital Signs Date Time Temp Pulse Resp B/P (MAP) Pulse Ox O2 Delivery O2 Flow Rate FiO2 02/07/19 07:02 98.2 67 16 142/69 (93) 91 Nasal Cannula 1.0 Intake and Output 02/07/19 07:03 Intake Total 2240 ml Output Total 1381 ml Balance 859 ml Intake Oral 1940 ml IV Total 300 ml Output Urine Total 1380 ml Stool Total 1 ml # Bowel Movements 5 General Appearance: No Acute Distress, Other (sleeping) Cardiovascular: Other (reg rate) GI: Other (abd soft) Result Diagram: 02/07/1960402/07/19604 Monitor Interpretation: Normal Sinus Rhythm Assessment and Plan Problems: (1) Cholecystitis Status: Acute Assessment & Plan: 83 yo female with acute cholecystitis in the setting of prior right nephrectomy for benign disease. Will need Coumadin reversed and cholecystectomy, likely an open approach. Will ask Int Med to eval given her co-morbidities. 02/05/19: doing fine. npo. cont iv abx. lap khushbu today. 02/06/19: doing well. diet as douglas. d/c tomorrow. 02/07/19: doing well. d/c today. Exam Sepsis Risk: No Definite Risk KHUSHI FORTUNE Feb 07, 2019 07:43
--- NOTE | 2019-02-07 08:44 | Hospitalist Progress Note ---
Subjective Progress Notes Subjective She was admitted with cholecystitis. She is doing well post-operatively. She had no acute events overnight. Patient Complains of: Cardiovascular: No: Chest Pain Respiratory: No: Shortness of Breath Physical Exam Vital Signs Date Time Temp Pulse Resp B/P (MAP) Pulse Ox O2 Delivery O2 Flow Rate FiO2 02/07/19 07:02 98.2 67 16 142/69 (93) 91 Nasal Cannula 1.0 Intake and Output 02/07/19 07:03 Intake Total 2240 ml Output Total 1381 ml Balance 859 ml Intake Oral 1940 ml IV Total 300 ml Output Urine Total 1380 ml Stool Total 1 ml # Bowel Movements 5 General Appearance: Alert, Awake, No Acute Distress, Afebrile Neuro: No Gross deficits Cardiovascular: Regular Rate and Rhythm Respiratory: No Respiratory Distress, Clear to Auscultation Psych: Alert & Oriented X3, Appropriate Mood & Affect Result Diagram: 02/07/1960402/07/19 06 Monitor Interpretation: Normal Sinus Rhythm Assessment and Plan Problems: (1) Cholecystitis, acute with cholelithiasis Status: Acute Assessment & Plan: See surgical report and plans include IV antibiotics with piperacillin/tazo and IV fluids, pain control. Follow CBC and chem panel. Cholecystectomy performed 02/05. (2) Ileus Status: Acute Assessment & Plan: Secondary to #1. (3) UTI (urinary tract infection) Status: Chronic Assessment & Plan: Probably has acute UTI based on UA. Culture done prior to antibiotics. She does have recurrent problems with UTI's and does self cath at home as needed--usually 3-4 times a day--due to poor bladder emptying. Will continue self cath as required. (4) Adrenal hyperplasia Status: Chronic Assessment & Plan: Will need to be evaluated as outpt. Could explain the hype rglycemia. (5) Hyperglycemia Status: Acute Assessment & Plan: Improving. No history of diagnosed diabetes. Hgb A1C is 5.7. Fasting glucoses ranging from upper 80s-90s. Will discontinue glucose checks. She will follow up as an outpatient. (6) Lymphadenopathy Status: Chronic Assessment & Plan: Most likely chronic although cannot exclude metastatic breast cancer. She is followed on a regular basis for her breast cancer and has had no recurrent noted. Will follow-up as outpatient. (7) Elevated serum creatinine Status: Chronic Assessment & Plan: Probably chronic due to previous left nephrectomy for damage done from what was probably sepsis in 1998. May be component of dehydration as well. (8) DVT of lower extremity (deep venous thrombosis) Status: Chronic Assessment & Plan: DVT x 1 post sepsis in 1998. No recurrence with chronic anticoagulation with warfarin. Reverse INR with 4u units of FFP. INR now 1.7. Warfarin restarted 02/06 with Therapeutic Lovenox dosing. (9) History of nephrectomy, right Status: Resolved Assessment & Plan: Renal damage was originally done in 1998 with episode of sepsis due to infection in left ankle and foot. Ended up with chronic UTI's and probable abscess in right kidney requiring nephrectomy in 2006. (10) ASVD (arteriosclerotic vascular disease) Status: Chronic Assessment & Plan: See CT report. (11) Breast cancer, right Status: Resolved Assessment & Plan: Inactive problem at this time with regular follow-up at home. The adenopathy reported on CT is a bit concerning but will follow-up as outpt. Exam Sepsis Risk: No Definite Risk Problem Qualifiers (1) UTI (urinary tract infection): Urinary tract infection type: acute cystitis TERRI LEVIN [employer] Feb 07, 2019 08:44
[2019-02-07] MEDS: BENAZEPRIL HCL 20 MG TAB PO SCH (10:30)
[2019-02-07] MEDS: ENOXAPARIN 100 MG/ML SYR SC SCH ×2 (10:31→20:40)
[2019-02-07] MEDS: LOPERAMIDE HCL 2 MG CAP PO PRN ×4 (10:37→16:25)
[2019-02-07 15:50] VITALS: BP 155/87
[2019-02-07] MEDS: TAMSULOSIN HCL 0.4 MG CAP PO SCH (20:34)
[2019-02-07 20:45] VITALS: BP 167/93
[2019-02-07] MEDS ORDERED: WARFARIN SOD 4 MG TAB PO SCH (21:00)
[2019-02-07 23:05] VITALS: BP 140/64
[2019-02-08 03:39] VITALS: BP 139/65
[2019-02-08] MEDS: LOPERAMIDE HCL 2 MG CAP PO PRN ×2 (03:41→08:58)
[2019-02-08 06:38] LABS: INR 1.71
[2019-02-08 06:53] VITALS: BP 135/66
--- NOTE | 2019-02-08 07:46 | Hospitalist Depart ---
Discharge Summary Reason for Hosp/Final Diag: (1) Cholecystitis Status: Acute Hospital Course & Plan: 83 yo female with acute cholecystitis in the setting of prior right nephrectomy for benign disease. Will need Coumadin reversed and cholecystectomy, likely an open approach. Will ask Int Med to yas given her co-morbidities. 02/05/19: doing fine. npo. cont iv abx. lap khushbu today. 02/06/19: doing well. diet as douglas. d/c tomorrow. 02/07/19: doing well. d/c today. 02/08/19: doing well. douglas po. a little sore. d/c today. Departure Weight (Pounds): 199 Weight (Ounces): 3.0 Result Diagram: 02/07/1960402/07/19604 Condition: Improved Discharge: Home Discharge Instructions Home Meds Active Scripts Tramadol Hcl (TRAMADOL HCL) 50 Mg Tablet, 50 MG PO Q6HR PRN for PAIN, #14 TAB Prov:KHUSHI LUKE 02/07/19 Reported Medications Benazepril Hcl (BENAZEPRIL HCL) 20 Mg Tab, 1 TAB PO QDAY 02/04/19 Warfarin Sodium (WARFARIN SODIUM) 1 Mg Tablet, 0.5 TAB PO DIRECTED 4 mg on MON, WED and FRI 4.5 mg on TUES, THURS, SAT and SUN 02/04/19 Tamsulosin Hcl (FLOMAX) 0.4 Mg Cap.er.24h, 1 CAP PO QHS, CAP 02/04/19 Warfarin Sodium (COUMADIN) 4 Mg Tablet, 1 TAB PO DIRECTED 4 mg on MON, WED and FRI 4.5 mg on TUES, TH, SAT and SUN 02/04/19 Diet: Regular Activity: As Tolerated Special Instructions: call Dr Luke for any questions at [phone]. f/u with physician in [place] in 1 wk. ok to shower. Venous Thromboembolism Antithrombotics Is Pt On Any Antithrombotics?: Yes KHUSHI LUKE Feb 08, 2019 07:46
[2019-02-08] MEDS ORDERED: ENOX100D5 SQ (08:10)
[2019-02-08] MEDS: BENAZEPRIL HCL 20 MG TAB PO SCH (08:57)
[2019-02-08] MEDS: ENOXAPARIN 100 MG/ML SYR SC SCH (08:57)
--- NOTE | 2019-02-08 09:49 | Hospitalist Progress Note ---
Subjective Progress Notes Subjective She was admitted with cholecystitis. She is doing well post-operatively. She plans to go home today. Patient Complains of: Cardiovascular: No: Chest Pain Respiratory: No: Shortness of Breath Physical Exam Vital Signs Date Time Temp Pulse Resp B/P (MAP) Pulse Ox O2 Delivery O2 Flow Rate FiO2 02/08/19 07:27 91 Nasal Cannula 1.0 02/08/19 06:53 98.6 70 16 135/66 (89) Intake and Output 02/08/19 07:03 Intake Total 580 ml Balance 580 ml Intake Oral 580 ml # Voids 4 # Bowel Movements 7 General Appearance: Alert, Awake, No Acute Distress, Afebrile Neuro: No Gross deficits Cardiovascular: Regular Rate and Rhythm Respiratory: No Respiratory Distress, Clear to Auscultation GI: Soft and Non-Tender Psych: Alert & Oriented X3, Appropriate Mood & Affect Result Diagram: 02/07/1960402/07/19604 Monitor Interpretation: Normal Sinus Rhythm Assessment and Plan Problems: (1) Cholecystitis, acute with cholelithiasis Status: Acute Assessment & Plan: See surgical report and plans include IV antibiotics with piperacillin/tazo and IV fluids, pain control. Cholecystectomy performed 02/05. (2) Ileus Status: Acute Assessment & Plan: Secondary to #1. (3) UTI (urinary tract infection) Status: Chronic Assessment & Plan: Probably has acute UTI based on UA. Culture done prior to antibiotics. She does have recurrent problems with UTI's and does self cath at home as needed--usually 3-4 times a day--due to poor bladder emptying. Will continue self cath as required. (4) Adrenal hyperplasia Status: Chronic Assessment & Plan: Will need to be evaluated as outpt. Could explain the hyperglycemia. (5) Hyperglycemia Status: Acute Assessment & Plan: Improving. No history of diagnosed diabetes. Hgb A1C is 5.7. Fasting glucoses ranging from upper 80s-90s. Will discontinue glucose checks. She will follow up as an outpatient. (6) Lymphadenopathy Status: Chronic Assessment & Plan: Most likely chronic although cannot exclude metastatic breast cancer. She is followed on a regular basis for her breast cancer and has had no recurrent noted. Will follow-up as outpatient. (7) Elevated serum creatinine Status: Chronic Assessment & Plan: Probably chronic due to previous left nephrectomy for damage done from what was probably sepsis in 1998. May be component of dehydration as well. (8) DVT of lower extremity (deep venous thrombosis) Status: Chronic Assessment & Plan: DVT x 1 post sepsis in 1998. No recurrence with chronic anticoagulation with warfarin. Reverse INR with 4u units of FFP. INR now 1.7. Warfarin restarted 02/06 with Therapeutic Lovenox dosing. She will be sent home with Lovenox injections, she will follow up on Sunday with INR. (9) History of nephrectomy, right Status: Resolved Assessment & Plan: Renal damage was originally done in 1998 with episode of sepsis due to infection in left ankle and foot. Ended up with chronic UTI's and probable abscess in right kidney requiring nephrectomy in 2006. (10) ASVD (arteriosclerotic vascular disease) Status: Chronic Assessment & Plan: See CT report. (11) Breast cancer, right Status: Resolved Assessment & Plan: Inactive problem at this time with regular follow-up at home. The adenopathy reported on CT is a bit concerning but will follow-up as outpt. Exam Sepsis Risk: No Definite Risk Problem Qualifiers (1) UTI (urinary tract infection): Urinary tract infection type: acute cystitis TERRI LEVIN [employer] Feb 08, 2019 09:49
[2019-02-08] MEDS ORDERED: WARFARIN SOD 2.5 MG TAB 2.5 MG, WARFARIN SOD 2 MG TAB 2 MG PO SCH (21:00)
== END 2019-02-08 11:50 | disposition home or self-care (01) | DRG 418 ==
LOC: ER 02:26 → MED 04:22
PROVIDERS: ADMIT Surgery; ATTEND Surgery
PROC: 0FT44ZZ Resection of Gallbladder, Percutaneous Endoscopic Approach (ICD-10-PCS; principal; 2019-02-04)
PROC: 30233L1 Transfusion of Nonautologous Fresh Plasma into Peripheral Vein, Percutaneous Approach (ICD-10-PCS; 2019-02-04)
DX: K80.12 Calculus of gallbladder with acute and chronic cholecystitis without obstruction (principal); N39.0 Urinary tract infection, site not specified; I70.90 Unspecified atherosclerosis; I10 Essential (primary) hypertension; E27.8 Other specified disorders of adrenal gland; R73.9 Hyperglycemia, unspecified; R59.1 Generalized enlarged lymph nodes; Z86.718 Personal history of other venous thrombosis and embolism; Z90.5 Acquired absence of kidney; Z88.2 Allergy status to sulfonamides; Z79.01 Long term (current) use of anticoagulants; Z90.11 Acquired absence of right breast and nipple
CPT/HCPCS: 36415; 36416; 71045; 74176; 81001; 82040; 82247; 82310; 82374; 82435; 82565; 82947; 82948; 83036; 83690; 84075; 84132; 84155; 84295; 84450; 84460; 84484; 84520; 85025; 85610; 85730; 86900; 86901; 87071; 87073; 87077; 87088; 87186; 87205; 88304; 93005; 96361; 96365; 96375; 99284; A4353; J1100; J1650; J2270; J2370; J2405; J2543; J2704; J3010; J7030; J7050; P9059; Q0163